=== PATIENT | male | born 1965 | race Caucasian/White ===

== ENCOUNTER 2017-10-07 10:44 | Day surgery (SDC) | payer MEDICARE ==
[~2017-10-07] VITALS: Ht 160 cm; Wt 63.6 kg
--- NOTE | ~2017-10-07 | OP ---
PATIENT NAME: MICHEL SAMANO MEDICAL RECORD: [id number] :65 LOCATION:D.OPS ADMISSION DATE: SURGEON: JOHANNE ANTONIO MD DATE OF OPERATION: 10/07/2017 PROCEDURE: Colonoscopy without biopsy or polypectomy. SURGEON: Johanne Antonio MD, gastroenterology SCOPE: Olympus video colonoscope. MEDICATIONS: Per TIVA anesthesia. The patient received 300 mg of propofol for this procedure, O2 at 4 liters. INDICATION FOR THE PROCEDURE: Screening colonoscopy, history of chronic constipation. Last procedure in 2002 and unremarkable except for internal hemorrhoids. FINDINGS: Informed consent was given. The patient was made comfortable with the above medications. After reaching an adequate level of sedation by slow IV push, the patient was placed on his left side. The rectal exam revealed good sphincter tone. No fissures or fistulas were appreciated. No external skin tags were seen. The colonoscope was advanced to the cecum, where ileocecal valve and appendiceal orifice were identified. The prep was fair. For this reason, some lesions could have been missed during our inspection. The patient had a redundant colon. Also noted was significant spasm, which could be associated with irritable bowel syndrome, constipation predominant. On withdrawal of the scope, the patient was noted to have no polyps, no masses, and no inflammation. He did have an ulcerated internal hemorrhoid. No external hemorrhoids were appreciated. The scope was then withdrawn. IMPRESSION: 1. Spasm associated with irritable bowel syndrome. 2. Redundant colon. 3. Ulcerated internal hemorrhoid. 4. No polyps, masses, diverticula, or inflammation. PLAN: 1. High-fiber diet. 2. Probiotics. 3. Return to clinic on p.r.n. basis. 4. For constipation, the patient should have fluid and fiber until he has a bulky stool, adjusting as necessary. Should take Colace 200 mg p.o. at bedtime. 5. Daily dose of MiraLAX p.o. and can repeat if necessary. TRANSINT:[id number] Voice Confirmation ID: [id number] DOCUMENT ID: [id number] OPERATIVE REPORT [id number] MICHEL SAMANO JOHANNE ANTONIO MD at 1617 CC: JOSEY LERMA MD [id number] DICTATION DATE: 10/07/17 1314 HAIR MIXER: 10/07/17 1349 DEP SDC 10/07/17 [place] [id number] [place] [address]
[2017-10-07 11:06] LABS: BASOPHILS 0.3 % (0-2); IMMATURE GRANULOCYTES 0.2 % (0-5); LYMPHOCYTES 24.7 % (15-50); MCH 33.9 pg (26.0-34.0); MCV 96.9 fL (80.0-100.0); MEAN PLATELET VOLUME 9.3 fL (7.4-10.4); MONOCYTES 5.9 % (2-11); NEUTROPHILS 67.9 % (40-80); PLATELET COUNT 200 10x3/uL (130-400); RBC 4.13 10x6/uL (4.20-6.10); RDW 12.9 % (11.5-14.5); WBC 5.8 10x3/uL (4.8-10.8)
[2017-10-07 11:16] LABS: CALC OSMOLALITY 285 mosm/kg (275-300); CARBON DIOXIDE 31.7 mmol/L (21.0-32.0); CHLORIDE - SERUM 106 mmol/L (98-107); GLUCOSE 104 mg/dL (74-106); POTASSIUM - SERUM 3.6 mmol/L (3.5-5.1); SODIUM 144 mmol/L (136-145); UREA NITROGEN 10 mg/dL (7-18); eGFR NON AFRICAN AMERICAN 83 mL/min (90-120)
[2017-10-07] MEDS ORDERED: MULTI-DAY VITAM1 TAB PO (12:21)
[2017-10-07] MEDS ORDERED: CALCIUM 500 + D1 TAB PO (12:22)
[2017-10-07] MEDS ORDERED: NEURONTIN 400400 MG PO (12:22)
[2017-10-07] MEDS ORDERED: VITAMIN C1000 MG PO (12:22)
[2017-10-07] MEDS ORDERED: BACLOFEN (12:23)
[2017-10-07] MEDS ORDERED: CELEXA20 MG PO (12:23)
[2017-10-07] MEDS ORDERED: OXYBUTYNIN CHLOR5 MG PO (12:23)
[2017-10-07 12:30] VITALS: BP 116/69; Ht 160 cm; Wt 63.6 kg
[2017-10-07] MEDS ORDERED: XARELTO10 MG PO (13:13)
== END 2017-10-07 14:26 | disposition home or self-care (01) ==
LOC: D.OPS 10:44
PROVIDERS: Internal Medicine Gastroenterology
DX: K58.1 Irritable bowel syndrome with constipation (principal); Z12.11 Encounter for screening for malignant neoplasm of colon; Q43.8 Other specified congenital malformations of intestine; K64.8 Other hemorrhoids; Z01.812 Encounter for preprocedural laboratory examination

== ENCOUNTER 2018-07-07 11:50 | Day surgery (SDC) | payer MEDICARE ==
[~2018-07-07] VITALS: Ht 160 cm; Wt 63.6 kg
--- NOTE | ~2018-07-07 | OP ---
PATIENT NAME: MICHEL GILBERT MEDICAL RECORD: [id number] :65 LOCATION:[facility] ADMISSION DATE: SURGEON: JOHANNE ANTONIO MD DATE OF OPERATION: 07/07/2018 PROCEDURE: EGD with biopsy. CHIEF EXECUTIVE: Johanne Antonio MD SCOPE: Olympus video gastroscope. MEDICATIONS: Per TIVA. The patient received 150 mg of propofol for this procedure, O2 at 4 liters. INDICATION FOR THE PROCEDURE: The patient presented to clinic on 01/03/2018 with complaint of pyrosis and nausea. He had an upper GI, which was significant for findings of achalasia. More specifically, the patient was noted on this study to have beaking of the esophagus at the gastroesophageal junction in conjunction with a dilated esophagus, compatible with achalasia. The patient had significant secondary and tertiary contractions of the esophagus, which caused severe delay of the passage of contrast in this upper GI study. Some of the contrast did eventually pass into the stomach, but overall the motility of the stomach was not as well evaluated as we would have wished. On questioning Mr. Gilbert, he is not really having any difficulty with eating. He can eat any modality which includes liquids as well as solids, roughage, raw vegetables, breads, etc. We are proceeding with this EGD to look for any esophageal dilatation and/or narrowing and/or functional stricture of the distal esophageal area. FINDINGS: Informed consent was given. The patient was made comfortable with the above medications. After reaching an adequate level of sedation by slow IV push, the patient was placed on his left side. The endoscope was then advanced under direct visualization through the posterior pharyngeal area and advanced to the esophagus. It was noted that the patient does have a mildly dilated esophagus and we did pause in order to observe the contractions, which appeared to be decreased with observation. The distal esophageal area did not have a functional or true stricture and we were easily able to pass the scope into the stomach. 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 A small hiatal hernia was observed both on direct and retroflexed views. On entering the stomach, mild inflammation was seen throughout the entire gastric mucosa. A biopsy was taken at the antral area and minimal bleeding occurred. We then advanced the scope into the first and second parts of the duodenum, where again mild inflammation was appreciated and a biopsy was obtained. The scope was then withdrawn. Of note, the patient has no ulcers or erosions throughout the entire area examined during the EGD i.e., no esophageal, gastric, or duodenal ulcers or erosions were present. IMPRESSION: 1. Decreased esophageal contractions. We are unable to tell if these are tertiary or secondary. Also mild dilatation of the esophagus, which is consistent with achalasia. 2. No functional or true stricture of the distal esophageal area. 3. Mild distal esophagitis, biopsied. The area was very friable and did bleed OPERATIVE REPORT [id number] MICHEL GILBERT. 4. Small hiatal hernia. 5. Mild global gastritis. No ulcers and no erosions. Biopsy taken at the antral area looking for the presence of Helicobacter pylori. 6. Mild duodenitis present globally in first and second portions of the duodenum. PLAN: 1. Due to the amount of bleeding that was observed, which was small but certainly present with these biopsies, we will hold off on starting the Xarelto for couple more days. 2. The patient will be asked to follow reflux precautions. 3. We will proceed with esophageal manometry. 4. We will place the patient on Protonix at a dose of 40 mg p.o. q.a.m. and Pepcid 20 mg p.o. at bedtime. 5. No anti-inflammatory drugs please. TRANSINT:[id number] Voice Confirmation ID: [id number] DOCUMENT ID: [id number] JOHANNE ANTONIO MD CC: JOSEY LERMA MD [id number] DICTATION DATE: 07/07/18 1415 POCKETS AND PIECES NECKTIE OPERATOR: 07/07/18 1553 [facility] [address] [place] [place] [id number]
[~2018-07-07 11:50] MED LIST: BACLOFEN; CALCIUM 500 + D1 TAB PO; CELEXA20 MG PO; MULTI-DAY VITAM1 TAB PO; NEURONTIN 400400 MG PO; OXYBUTYNIN CHLOR5 MG PO; VITAMIN C1000 MG PO; XARELTO10 MG PO
[2018-07-07 12:29] LABS: HEMATOCRIT 39.9 % (42.0-54.0); HEMOGLOBIN 13.9 g/dL (13.5-17.5); MCH 33.8 pg (26.0-34.0); MCHC 34.8 g/dL (31.0-37.0); MCV 97.1 fL (80.0-100.0); MEAN PLATELET VOLUME 9.5 fL (7.4-10.4); RBC 4.11 10x6/uL (4.20-6.10); RDW 12.9 % (11.5-14.5); WBC 5.2 10x3/uL (4.8-10.8)
[2018-07-07 12:41] LABS: APTT 29.9 SECONDS (22.8-39.4); INR 1.26 (0.85-1.17); PROTIME 15.3 SECONDS (11.6-15.0)
[2018-07-07] MEDS ORDERED: VALIUM5 MG PO (13:00)
[2018-07-07 13:10] VITALS: BP 115/63; Ht 160 cm; Wt 63.6 kg
[2018-07-07] MEDS ORDERED: METAMUCIL PACKE1 PKT PO (13:15)
--- NOTE | 2018-07-07 14:15 | NUR ---
REC'D FROM GI LAB. FAMILY AT BEDSIDE. GRPE JUICE BROUGHT TO PT. DR TIDWELL TO SPEAK WITH PATIENT.
--- NOTE | 2018-07-07 14:30 | NUR ---
DR TIDWELL IN WITH PATIENT.
--- NOTE | 2018-07-07 14:55 | NUR ---
JOANA BARR BROUGHT TO PT. FAMILY AT BEDSIDE. EXAMPLES OF A HIGH FIBER DIET GIVEN TO PT AND A COPY OF NSAIDS OR BLOOD THINNERS TO AVOID WAS GIVEN TO PT.
--- NOTE | 2018-07-07 15:15 | NUR ---
TOLERATED DIET. IV DC'D WITH CATHETER INTACT. WRITTEN AND VERBAL DC INST. GIVEN TO PT. VERBALIZED UNDERSTANDING.
--- NOTE | 2018-07-07 15:30 | NUR ---
DC'D HOME WITH FAMILY VIA PRIVATE VEHICLE. TAKEN TO VEHICLE VIA PERSONAL WC. STABLE AT TIME OF DC.
--- NOTE | 2018-07-07 15:46 | NUR ---
CALLED AND SPOKE WITH PATIENT'S MOTHER. INFORMED HER OF PATIENT'S FOLLOW UP FOR A MANOMETRY ON JULY 12 AT 9:30 AND FOR HIM TO BE AT THE HOSPIRAL AT 9:00. NOTHING TO EAT OR DRINK AFTER MIDNIGHT BUT COULD TAKE HIS MEDS WITH A SIP OF WATER. VERBALIZED UNDERSTANDING.
== END 2018-07-07 15:30 | disposition home or self-care (01) ==
LOC: D.OPS 11:50
PROVIDERS: Anesthesiology; ATTEND Internal Medicine Gastroenterology
DX: K22.0 Achalasia of cardia (principal); K29.50 Unspecified chronic gastritis without bleeding; K20.9 Esophagitis, unspecified; K29.80 Duodenitis without bleeding; K44.9 Diaphragmatic hernia without obstruction or gangrene; Z01.812 Encounter for preprocedural laboratory examination

== ENCOUNTER → 2018-07-12 10:00 | Outpatient (CLI) | payer MEDICARE ==
[2018-07-07 13:10] VITALS: BMI 24.8
[~2018-07-12 10:00] MED LIST changes: +METAMUCIL PACKE1 PKT PO; +VALIUM5 MG PO
== END | disposition home or self-care (01) ==
LOC: D.OPS 09:30
PROVIDERS: ATTEND Internal Medicine Gastroenterology
DX: K20.9 Esophagitis, unspecified (principal); K44.9 Diaphragmatic hernia without obstruction or gangrene; K22.0 Achalasia of cardia; K29.80 Duodenitis without bleeding; K29.50 Unspecified chronic gastritis without bleeding; Z01.812 Encounter for preprocedural laboratory examination